=== PATIENT | female | born 1980 | race African-American/Black ===

== ENCOUNTER 2019-04-21 10:30 | Emergency (ER) | payer OTHER ==
[~2019-04-21] VITALS: Ht 170.2 cm; Wt 97.0 kg
[~2019-04-21 10:30] MED LIST: DIAZ2TAB PO; MEGE40TA2 PO; NITR100C PO
[2019-04-21] MEDS ORDERED: FAMOTIDINE 20MG/2ML VIAL IV ONE (12:00)
[2019-04-21] MEDS ORDERED: DIPHENHYDRAMINE 50MG/ML VIAL IV ONE (12:00)
[2019-04-21] MEDS ORDERED: METHYLPREDNISOLONE SOD SUCC 125 MG/2 ML VIAL IV ONE (12:00)
[2019-04-21 14:26] VITALS: BP 122/84
== END 2019-04-21 14:28 | disposition home or self-care (01) ==
LOC: ER 13:34
DX: T78.40XA Allergy, unspecified, initial encounter (principal); X58.XXXA Exposure to other specified factors, initial encounter; Z98.890 Other specified postprocedural states
CPT/HCPCS: 81025; 96374; 96375; 99283; J1200; J2930; J3490